=== PATIENT | female | born 1955 | race African-American/Black ===

== ENCOUNTER 2018-05-07 13:37 | Emergency (ER) | payer MEDICAID ==
[~2018-05-07] VITALS: Ht 165.1 cm; Wt 103.0 kg
[2018-05-07] MEDS ORDERED: TYLENOL EXTRA500 MG ORAL (15:36)
--- NOTE | 2018-05-07 15:36 | Emergency Room Report ---
History of Present Illness General Chief Complaint: Lower Extremity Injury Source: Patient Present Illness HPI 62-year-old female patient presents ER complaining of left foot and ankle pain for the past week. States she twisted her foot and ankle but does not remember exactly "when or how". reports feeling a "crack". Reports pain with ambulation. Denies calf pain. Reports took ibuprofen for pain. Denies fever, chest pain, shortness of breath. Denies hitting her head or loss consciousness. Allergies: Coded Allergies: No Known Allergies (Unverified , 05/07/18) Patient History Past Medical History: see triage record Reviewed Nursing Documentation: PMH: Agreed; PSxH: Agreed Nursing Documentation-PMH Past Medical History: No History, Except For Hx Hypertension: Yes Review of Systems All Other Systems: negative except mentioned in HPI Physical Exam Vital Signs Date Time Temp Pulse Resp B/P (MAP) Pulse Ox O2 Delivery O2 Flow Rate FiO2 05/07/18 14:42 98.4 65 18 132/80 97 Room Air Sp02 EP Interpretation: reviewed, normal General Appearance: well appearing, no apparent distress, alert, GCS 15, non- toxic Head: normocephalic, atraumatic Eyes: bilateral eye normal inspection, bilateral eye PERRL ENT: hearing grossly normal, normal pharynx, no angioedema, normal voice, uvula midline, moist mucus membranes Neck: full range of motion Respiratory: lungs clear, normal breath sounds, no rhonchi, no respiratory distress, no accessory muscle use, no wheezing, speaking full sentences Cardiovascular #1: regular rate, rhythm, no edema Cardiovascular #2: 2+ dorsalis pedis (R), 2+ dorsalis pedis (L) Musculoskeletal: back normal, digits/nails normal, gait/station normal, normal range of motion, no calf tenderness, Dakota's Sign negative, other - NVI, negative syndesmotic squeeze test, no ecchymosis, no edema, no erythema, tender - left posterior lateral malleolus, base of left fifth metatarsal Neurologic: alert, oriented x3, responsive, motor strength/tone normal, sensory intact Psychiatric: mood/affect normal Skin: no rash Medical Decision Making PA Attestation Dr. Aguilar is my supervising Physician whom patient management has been discussed with. Diagnostic Impression: Primary Impression: Ankle sprain ER Course Pt. presents to the ED c/o left foot and ankle pain. Ddx considered but are not limited to fracture, sprain, strain, contusion, dislocation. No erythema, no warmth to touch, no fever, nontoxic appearing, low suspicion for septic joint. Soft compartments, no pulselessness, no pallor, no paresthesias, low suspicion for compartment syndrome at this time. Vital signs: are WNL, pt. is afebrile Ordered X-ray and pain medication. ER COURSE Provided with pain medication. An X-ray of the left foot shows no acute fracture per the preliminary reading. An X-ray of the left ankle shows no acute fracture per the preliminary reading. Likely sprain causing pain symptoms. Air splint and Ashley wrap applied to the left ankle and foot and was checked afterwards by me showing good alignment and support with distal neurovascular functioning intact. Crutches provided. Patient instructed on RICE method: rest, ice, compression, elevation. Patient instructed on rest, ice and heat. Patient instructed to be WBAT Contact information for orthopedic urgent care provided, follow-up with urgent care if unable to followup with primary care provider and get referral to project controls specialist. Followup with primary care provider. Discuss referral to ortho/pain management/ PT as needed. Discuss further imaging with MRI/CT as needed. DISCHARGE: -Rx provided for Tylenol for pain symptoms. At this time pt. is stable for d/c to home. Patient is resting comfortably, in no acute distress, nontoxic appearing, talking without difficulty. Will provide printed patient care instructions, and any necessary prescriptions. Patient instructed to follow with primary care provider in 3 - 5 days and to request further follow-up as needed. Care plan and follow up instructions have been discussed with the patient prior to discharge. Take medications as directed. Patient questions asked and answered. Patient reports understanding and agreement to treatment plan. ER precautions given, patient instructed to return to ER immediately for any new or worsening of symptoms. - Please note that this Emergency Department Report was dictated using [employer] made shoe unit worker technology software, occasionally this can lead to erroneous entry secondary to interpretation by the dictation equipment. Other X-Ray Diagnostic Results Other X-Ray Diagnostic Results #1: X-Ray ordered: left foot # of Views/Limited Vs Complete: 3 View Indication: Pain EP Interpretation: Yes PA Xray: Interpretation reviewed, by supervising MD, and agrees with findings. Interpretation: no dislocation, no soft tissue swelling, no fractures Impression: No acute disease FREDA Scribe Text Juaquin Garner PA-C Other X-Ray Diagnostic Results #2: X-Ray ordered: left ankle # of Views/Limited Vs Complete: 3 View Indication: Pain EP Interpretation: Yes PA Xray: Interpretation reviewed, by supervising MD, and agrees with findings. Interpretation: no dislocation, no soft tissue swelling, no fractures Impression: No acute disease FREDA Scribe Text Juaquin Garner PA-C Last Vital Signs Date Time Temp Pulse Resp B/P (MAP) Pulse Ox O2 Delivery O2 Flow Rate FiO2 05/07/18 14:42 98.4 65 18 132/80 97 Room Air Status: improved Disposition: HOME, SELF-CARE Condition: Stable Scripts Acetaminophen* (TYLENOL EXTRA STRENGTH*) 500 Mg Tablet 500 MG ORAL Q8H PRN for Prn Headache/Temp > 101, #30 TAB 0 Refills Prov: Kush Garner 05/07/18 Patient Instructions: Ankle Sprain, Foot Sprain Additional Instructions: Patient instructed to follow up with primary care provider and discuss further referral to orthopedics/physical therapy/pain management as needed. If unable to followup with PCP, followup with orthopedic urgent care in 5-7 days , call to schedule appointment. Patient instructed on RICE method: rest, ice, compression, elevation. Patient instructed to WBAT. Take medications as directed. Patient questions asked and answered. ER precautions given, patient instructed to return to ER immediately for any new or worsening of symptoms. [facility] [address] [facility] [address] [facility], [id number] [email or web address] Kush Garner May 07, 2018 15:36
--- NOTE | 2018-05-07 15:48 | Diagnostic Imaging Report ---
Indication: Ankle pain Technique: 3 views of the left ankle Comparison: none Findings: Bones are osteoporotic. There is slight soft tissue swelling over the lateral malleolus. No definite acute fractures. No dislocations. The joint spaces are preserved. There are large plantar and calcaneal spurs. Impression: No acute bony trauma
--- NOTE | 2018-05-07 15:50 | Diagnostic Imaging Report ---
Indication: Left foot pain Technique: 3 views left foot Comparison: None Findings: There are degenerative changes of the first tarsometatarsal joint, and first metatarsophalangeal joint. No acute fractures. No dislocations. Impression: Degenerative changes, as described. No acute bony trauma
[2018-05-07 16:20] VITALS: BP 132/80
== END 2018-05-07 16:23 | disposition home or self-care (01) ==
LOC: EMR 15:37
DX: S93.492A Sprain of other ligament of left ankle, initial encounter (principal); X50.1XXA Overexertion from prolonged static or awkward postures, initial encounter; Y92.89 Other specified places as the place of occurrence of the external cause; I10 Essential (primary) hypertension
CPT/HCPCS: 99284